=== PATIENT | female | born 1960 | race Caucasian/White ===

== ENCOUNTER 2017-04-01 08:10 | Emergency (ER) | payer BC ==
--- NOTE | 2017-04-01 08:24 | PDOC ---
History of Present Illness - General Chief Complaint: Pain Stated Complaint: RT SHOULDER PAIN Time Seen by Provider: 04/01/17 08:24 History Source: Patient Exam Limitations: No Limitations - History of Present Illness Initial Comments: 56 yo F history shoulder pain presents with similar pain to prior exacerbations. She has been worked up for RA, negative. She has been treated with neurontin for the pain, but it did not help today. She states the pain is worse than usual. It is anterior shoulder, nonradiating, severe. Worse with movement, better with rest. No cp, neck pain, SOB, fever, chills, N/V, weakness , numbness. No prior shoulder surgery or dislocations. No recent trauma. She does not have any history of repetitive lifting or heavy lifting. Past History - Past Medical History Allergies/Adverse Reactions: Allergies Allergy/AdvReac Type Severity Reaction Status Date / Time No Known Allergies Allergy Verified 04/01/17 08:13 Home Medications: Ambulatory Orders Cetirizine HCl [Zyrtec -] 1 tab PO DAILY PRN 04/01/17 Gabapentin [Neurontin] 100 mg PO PRN PRN 04/01/17 Ibuprofen [Motrin -] 600 mg PO TID PRN #21 tablet 04/01/17 Methocarbamol [Robaxin -] 500 mg PO BID PRN #14 tablet 04/01/17 Review of Systems - Review of Systems Able to Perform ROS?: Yes Comments:: GENERAL/CONSTITUTIONAL: No fever or chills. No weakness. HEAD, EYES, EARS, NOSE AND THROAT: No change in vision. No ear pain or discharge. No sore throat. CARDIOVASCULAR: No chest pain or shortness of breath. RESPIRATORY: No cough, wheezing, or hemoptysis. MUSCULOSKELETAL: +R shoulder pain. No joint swelling. No neck or back pain. SKIN: No rash NEUROLOGIC: No headache, vertigo, loss of consciousness, or change in strength/ sensation. *Physical Exam - Physical Exam Comments: GENERAL: Awake, alert, and fully oriented, in no acute distress HEAD: No signs of trauma EYES: PERRLA, EOMI, sclera anicteric, conjunctiva clear ENT: Auricles normal inspection, hearing grossly normal, nares patent, oropharynx clear without exudates. Moist mucosa NECK: Normal ROM, supple, no lymphadenopathy, JVD, or masses LUNGS: Breath sounds equal, clear to auscultation bilaterally. No wheezes, and no crackles HEART: Regular rate and rhythm, normal S1 and S2, no murmurs, rubs or gallops EXTREMITIES: R shoulder with dec ROM due to pain. +Point tenderness to the R anterior deltoid muscles. Distal N/V intact. Remainder of extremities with normal range of motion, no edema. No clubbing or cyanosis. No cords, erythema, or tenderness NEUROLOGICAL: Cranial nerves II through XII grossly intact. Normal speech, normal gait. Strength and sensation intact. SKIN: Warm, Dry, normal turgor, no rashes or lesions noted. Medical Decision Making - Medical Decision Making 04/01/17 10:02 Pt reports improvement in ROM with NSAID and robaxin. Stable for DC home. Will recommend outpatient ortho f/u, as she has not yet seen an ortho for her pain. *DC/Admit/Observation/Transfer Diagnosis at time of Disposition: Right shoulder pain Qualifiers: Chronicity: acute Qualified Code(s): M25.511 - Pain in right shoulder - Discharge Dispostion Disposition: HOME Condition at time of disposition: Stable Admit: No - Prescriptions Prescriptions: Ibuprofen [Motrin -] 600 mg PO TID PRN #21 tablet PRN Reason: Pain Methocarbamol [Robaxin -] 500 mg PO BID PRN #14 tablet PRN Reason: Muscle Spasms - Referrals Referrals: James Brock MD [Staff Physician] - - Patient Instructions Printed Discharge Instructions: DI for Shoulder Pain
[2017-04-01 08:33] VITALS: BP 133/85; PULSE 82; TEMP 98.9; BMI 27.4
[2017-04-01] MEDS ORDERED: METHOCARBAMOL 500 MG TABLET PO ONE ×2 (08:49→08:53)
[2017-04-01] MEDS ORDERED: IBUPROFEN 600 MG TABLET (FP) PO ONE ×2 (08:49→08:53)
[2017-04-01] MEDS ORDERED: CYCLOBENZAPRINE HCL 5 MG TABLET PO ONE (08:53)
[2017-04-01] MEDS ORDERED: METHOCARBAMOL 500 MG TABLET ONE (08:53)
== END 2017-04-01 10:09 | disposition home or self-care (01) ==
LOC: FER 08:10
DX: M25.511 Pain in right shoulder (principal)
CPT/HCPCS: 73030-TC-RT; 99282-25

== ENCOUNTER 2018-08-17 18:43 | Emergency (ER) | payer BC, OTHER ==
[2018-08-17] MEDS ORDERED: IBUPROFEN 600 MG TABLET (FP) PO ONE ×2 (19:18→19:20)
[2018-08-17 19:20] VITALS: BP 141/81; PULSE 89; TEMP 98.1; BMI 28.3
--- NOTE | 2018-08-17 19:24 | PDOC ---
History of Present Illness - General History Source: Patient Exam Limitations: No Limitations - History of Present Illness Initial Comments: 08/17/18 19:19 <Steph Byrne - Last Filed: 08/17/18 19:19> - History of Present Illness Initial Comments: This patient is a 58 year old female with PMHx of chronic right shoulder pinched nerve (saw ortho in past) , who presents s/p slip and fall on ice earlier. Patient states that she slipped and fell forward in a superman position. She is currently complaining of right knee and left hip pain. She also complaining of right shoulder and right wrist pain for a couple of weeks. Was able to ambulate immediately after incident. Denies hitting head. left hip , b/l knee, left wrist, nsf right arm Social Hx: 6 cigarette/day smoker. 08/17/18 19:26 <Rashmi Trevino - Last Filed: 08/17/18 19:34> - General Chief Complaint: Injury Stated Complaint: right arm pain,knees pain s/p slipped on ice and f Past History - Past Medical History COPD: No Other medical history: pt denies - Suicide/Smoking/Psychosocial Hx Smoking History: Current every day smoker Have you smoked in the past 12 months: Yes Number of Cigarettes Smoked Daily: 6 Information on smoking cessation initiated: Yes 'Breaking Loose' booklet given: 04/01/17 Hx Alcohol Use: No Drug/Substance Use Hx: No Substance Use Type: None <Steph Byrne - Last Filed: 08/17/18 19:19> <Rashmi Trevino - Last Filed: 08/17/18 19:34> - Past Medical History Allergies/Adverse Reactions: Allergies Allergy/AdvReac Type Severity Reaction Status Date / Time No Known Allergies Allergy Verified 08/17/18 18:45 Home Medications: Ambulatory Orders NK [No Known Home Medication] 08/17/18 Review of Systems - Review of Systems Comments:: GENERAL/CONSTITUTIONAL: No fever or chills. No weakness. HEAD, EYES, EARS, NOSE AND THROAT: No change in vision. No ear pain or discharge. No sore throat. CARDIOVASCULAR: No chest pain or shortness of breath. RESPIRATORY: No cough, wheezing, or hemoptysis. GASTROINTESTINAL: No nausea, vomiting, diarrhea or constipation. GENITOURINARY: No dysuria, frequency, or change in urination. MUSCULOSKELETAL: +right shoulder pain, +right knee pain, +left hip pain, +right wrist pain. No neck or back pain. SKIN: No rash NEUROLOGIC: No headache, vertigo, loss of consciousness, or change in strength/ sensation. ENDOCRINE: No increased thirst. No abnormal weight change. HEMATOLOGIC/LYMPHATIC: No anemia, easy bleeding, or history of blood clots. ALLERGIC/IMMUNOLOGIC: No hives or skin allergy. <Rashmi Trevino - Last Filed: 08/17/18 19:34> *Physical Exam - Vital Signs Last Vital Signs Temp Pulse Resp BP Pulse Ox 98.1 F 89 18 141/81 99 08/17/18 18:45 08/17/18 18:45 08/17/18 18:45 08/17/18 18:45 08/17/18 18:45 <Steph Byrne - Last Filed: 08/17/18 19:19> - Vital Signs Last Vital Signs Temp Pulse Resp BP Pulse Ox 98.1 F 89 18 141/81 99 08/17/18 18:45 08/17/18 18:45 08/17/18 18:45 08/17/18 18:45 08/17/18 18:45 - Physical Exam Comments: GENERAL: Awake, alert, and fully oriented, in no acute distress HEAD: No signs of trauma EYES: PERRLA, EOMI, sclera anicteric, conjunctiva clear ENT: Auricles normal inspection, hearing grossly normal, nares patent, oropharynx clear without exudates. Moist mucosa NECK: Normal ROM, supple, no lymphadenopathy, JVD, or masses LUNGS: Breath sounds equal, clear to auscultation bilaterally. No wheezes, and no crackles HEART: Regular rate and rhythm, normal S1 and S2, no murmurs, rubs or gallops ABDOMINOPELVIS: Soft, nontender, normoactive bowel sounds. No guarding, no rebound. No masses. Left lateral hip tenderness, FROM. BACK: No midline spine tenderness. EXTREMITIES: Right knee tenderness to palpation, FROM, small eccymosis. Right shoulder, wrist, & knee FROM. No edema. 5/5 strength in all 4 extremities. NEUROLOGICAL: Cranial nerves II through XII grossly intact. Normal speech, normal gait SKIN: small ecchymosis on r knee, otherwise intact. <Rashmi Trevino - Last Filed: 08/17/18 19:34> Moderate Sedation - Procedure Monitoring Vital Signs: Procedure Monitoring Vital Signs Temperature 98.1 F 08/17/18 18:45 Pulse Rate 89 08/17/18 18:45 Respiratory Rate 18 08/17/18 18:45 Blood Pressure 141/81 08/17/18 18:45 O2 Sat by Pulse Oximetry (%) 99 08/17/18 18:45 <Steph Byrne - Last Filed: 08/17/18 19:19> - Procedure Monitoring Vital Signs: Procedure Monitoring Vital Signs Temperature 98.1 F 08/17/18 18:45 Pulse Rate 89 08/17/18 18:45 Respiratory Rate 18 08/17/18 18:45 Blood Pressure 141/81 08/17/18 18:45 O2 Sat by Pulse Oximetry (%) 99 08/17/18 18:45 <Rashmi Trevino - Last Filed: 08/17/18 19:34> ED Treatment Course - RADIOLOGY Radiology Studies Ordered: Category Date Time Status HIP & PELVIS-LEFT [RAD] Stat Radiology 08/17/18 19:16 Ordered KNEE 3 POS-RIGHT [RAD] Stat Radiology 08/17/18 19:16 Ordered <Steph Byrne - Last Filed: 08/17/18 19:19> - Medications Given in the ED: ED Medications Discontinued Medications Generic Name Dose Route Start Last Admin Trade Name Freq PRN Reason Stop Dose Admin Ibuprofen 600 mg 08/17/18 19:18 08/17/18 19:22 Motrin - PO 08/17/18 19:19 600 mg ONCE ONE Administration <Rashmi Trevino - Last Filed: 08/17/18 19:34> Medical Decision Making - Medical Decision Making 08/17/18 19:20 58 yo F with h/o chronic right shoulder pain, trapped nerve in shoulder, here s/ p trip and fall. slipped tripped and slipped forward on her abd. c/o left hp pain and right knee pain. pt has chronic right wrist pain, but that has been for weeks prior to her fall. takes naprosyn. slip happened earlier today. no head trauma. ambulating since fall. on exam mild ttp over left hip, right knee. but from. no mildlien spinal tenderness. no snuff box tendernss. right arm from at shoulder, elbow and wrist. nuero 5/5 all four ext. plan xray hip, knee, fu princess. motrin for pain or naprosyn. <Steph Byrne - Last Filed: 08/17/18 19:19> *DC/Admit/Observation/Transfer <Steph Byrne - Last Filed: 08/17/18 19:19> - Attestations Scribe Attestion: 08/17/18 19:33 Documentation prepared by Rashmi Trevino, acting as medical physiologist for Steph Byrne MD. <Rashmi Trevino - Last Filed: 08/17/18 19:34> Diagnosis at time of Disposition: Contusion, hip, Knee contusion, Right shoulder pain - Discharge Dispostion Condition at time of disposition: Improved - Referrals Referrals: Maikol Ryan MD [Staff Physician] - - Patient Instructions Printed Discharge Instructions: Smoking Cessation Additional Instructions: you awilda be sore for 3 - 5 days. you can follow up with dr. ryan. call to schedule. for next week. you can take naprosyn 500 mg up to twice daily for pain. ice to help alleviate inflammation. elevate as needed. - Post Discharge Activity
== END 2018-08-17 20:17 | disposition home or self-care (01) ==
LOC: FER 18:43
DX: M25.511 Pain in right shoulder (principal); S70.02XA Contusion of left hip, initial encounter; S80.01XA Contusion of right knee, initial encounter; W00.0XXA Fall on same level due to ice and snow, initial encounter; Y93.89 Activity, other specified; Y92.410 Unspecified street and highway as the place of occurrence of the external cause; F17.210 Nicotine dependence, cigarettes, uncomplicated
CPT/HCPCS: 73523-TC-FY; 73562-TC-RT-FY; 99282-25